=== PATIENT | female | born 1945 | race Caucasian/White ===

== ENCOUNTER 2016-10-23 08:22 | Emergency (ER) | payer OTHER ==
[~2016-10-23] VITALS: Ht 157.5 cm; Wt 79.4 kg
[~2016-10-23 08:22] MED LIST: ALDACTONE25 MG PO; BYSTOLIC 5 MG5 M1 PO; CEFDINIR300 MG PO; CEFTIN PO; CELEXA20 MG PO; CHILDREN'S ASPI81 M1 PO; CIPRO500 MG PO; CIPRODEX OTIC7.5 ML OTIC; COREG12.5 MG PO; DIOVAN 80 MG TA80 M1 PO; DIOVAN320 MG PO; ELIQUIS5 MG PO; ESSENTIAL DAIL1 EACH PO; FOLIC ACID1 MG PO; LASIX 40 MG TAB40 M2 PO; LIPITOR 20 MG T20 M1 PO; NORCO 5-325 TA1 EACH PO; NORTRIPTYLINE H50 M3 PO; NORVASC2.5 MG PO; OYSTER SHELL C500 MG PO; PACERONE 200 M200 M1 PO; POTASSIUM20 PO; PROTONIX40 M4 PO; RITUXAN100 MG/10 IV
[2016-10-23] MEDS ORDERED: CELEBREX 200 M200 M1 PO (08:46)
[2016-10-23] MEDS ORDERED: NORCO 5-325 TA1 EACH PO (08:46)
[2016-10-23] MEDS ORDERED: FOLIC ACID1 MG PO (08:58)
[2016-10-23] MEDS ORDERED: DIOVAN 80 MG TA80 M1 PO (08:58)
[2016-10-23] MEDS ORDERED: TRAMADOL 50 MG50 MG PO (08:59)
[2016-10-23 09:21] VITALS: BP 123/53
== END 2016-10-23 09:37 | disposition home or self-care (01) ==
LOC: ER 08:22
DX: M54.5 Low back pain (principal); K21.9 Gastro-esophageal reflux disease without esophagitis; F41.9 Anxiety disorder, unspecified; F32.9 Major depressive disorder, single episode, unspecified; F10.99 Alcohol use, unspecified with unspecified alcohol-induced disorder; I25.10 Atherosclerotic heart disease of native coronary artery without angina pectoris; E78.00 Pure hypercholesterolemia, unspecified; I11.0 Hypertensive heart disease with heart failure; I50.9 Heart failure, unspecified; M06.9 Rheumatoid arthritis, unspecified; Z90.49 Acquired absence of other specified parts of digestive tract; Z91.040 Latex allergy status

== ENCOUNTER 2016-12-01 00:45 | Emergency (ER) | payer OTHER ==
[~2016-12-01] VITALS: Ht 157.5 cm; Wt 78.0 kg
[~2016-12-01 00:45] MED LIST changes: +CELEBREX 200 M200 M1 PO; +TRAMADOL 50 MG50 MG PO
[2016-12-01] MEDS ORDERED: NEURONTIN300 MG PO (01:01)
[2016-12-01] MEDS ORDERED: OXYCODONE HCL 55 MG PO (01:03)
[2016-12-01 02:57] VITALS: BP 123/49
== END 2016-12-01 02:58 | disposition home or self-care (01) ==
LOC: ER 00:45
DX: S73.102A Unspecified sprain of left hip, initial encounter (principal); S93.601A Unspecified sprain of right foot, initial encounter; S80.12XA Contusion of left lower leg, initial encounter; I11.0 Hypertensive heart disease with heart failure; I50.9 Heart failure, unspecified; K21.9 Gastro-esophageal reflux disease without esophagitis; F32.9 Major depressive disorder, single episode, unspecified; F41.9 Anxiety disorder, unspecified; I25.10 Atherosclerotic heart disease of native coronary artery without angina pectoris; E78.00 Pure hypercholesterolemia, unspecified; G43.909 Migraine, unspecified, not intractable, without status migrainosus; I48.0 Paroxysmal atrial fibrillation; M06.9 Rheumatoid arthritis, unspecified; F10.99 Alcohol use, unspecified with unspecified alcohol-induced disorder; Z90.49 Acquired absence of other specified parts of digestive tract; Z98.890 Other specified postprocedural states; Z91.040 Latex allergy status; W18.39XA Other fall on same level, initial encounter; Y93.89 Activity, other specified; Y92.89 Other specified places as the place of occurrence of the external cause; Y99.8 Other external cause status

== ENCOUNTER 2016-12-03 11:27 | Emergency (ER) | payer OTHER ==
[~2016-12-03] VITALS: Ht 157.5 cm; Wt 78.0 kg
[~2016-12-03 11:27] MED LIST changes: +NEURONTIN300 MG PO; +OXYCODONE HCL 55 MG PO
[2016-12-03 13:15] VITALS: BP 126/49
[2016-12-03] MEDS ORDERED: PERCOCET 7.5-31 EACH PO (14:24)
== END 2016-12-03 17:31 | disposition home or self-care (01) ==
LOC: ER 11:27
DX: S70.02XA Contusion of left hip, initial encounter (principal); K21.9 Gastro-esophageal reflux disease without esophagitis; M06.9 Rheumatoid arthritis, unspecified; G43.909 Migraine, unspecified, not intractable, without status migrainosus; I48.91 Unspecified atrial fibrillation; F41.9 Anxiety disorder, unspecified; F32.9 Major depressive disorder, single episode, unspecified; I25.10 Atherosclerotic heart disease of native coronary artery without angina pectoris; E78.00 Pure hypercholesterolemia, unspecified; I73.00 Raynaud's syndrome without gangrene; I11.0 Hypertensive heart disease with heart failure; I50.9 Heart failure, unspecified; F10.99 Alcohol use, unspecified with unspecified alcohol-induced disorder; Z91.040 Latex allergy status; Z90.49 Acquired absence of other specified parts of digestive tract; W18.30XA Fall on same level, unspecified, initial encounter; Y93.89 Activity, other specified; Y92.89 Other specified places as the place of occurrence of the external cause; Y99.8 Other external cause status

== ENCOUNTER → 2017-04-07 | Outpatient (CLI) | payer OTHER ==
[~2017-04-07] MED LIST changes: +PERCOCET 7.5-31 EACH PO
== END ==
LOC: HYPER 06:40
DX: T81.31XA Disruption of external operation (surgical) wound, not elsewhere classified, initial encounter (principal); L98.422 Non-pressure chronic ulcer of back with fat layer exposed; M54.16 Radiculopathy, lumbar region; M54.5 Low back pain; I11.0 Hypertensive heart disease with heart failure; I50.9 Heart failure, unspecified; M06.9 Rheumatoid arthritis, unspecified; E78.5 Hyperlipidemia, unspecified; Z72.89 Other problems related to lifestyle; Y83.8 Other surgical procedures as the cause of abnormal reaction of the patient, or of later complication, without mention of misadventure at the time of the procedure

== ENCOUNTER → 2017-04-12 | Outpatient (CLI) | payer OTHER ==
[~2017-04-12] MED LIST changes: +ASPIRIN PO; +BUTALBITAL PO; +CAFFEINE PO; +EQUATE ALLERGY RELIE PO; +PERCOCET 5-3251 EACH PO; +PROPRANOLOL 4040 M1 PO; +SULFASALAZINE500 M1 PO; +VITAMINC500 PO
== END ==
LOC: HYPER 04-11 09:27
DX: T81.31XD Disruption of external operation (surgical) wound, not elsewhere classified, subsequent encounter (principal); L98.422 Non-pressure chronic ulcer of back with fat layer exposed; I11.0 Hypertensive heart disease with heart failure; I50.9 Heart failure, unspecified; E78.5 Hyperlipidemia, unspecified; M06.9 Rheumatoid arthritis, unspecified; Z72.89 Other problems related to lifestyle; Y83.8 Other surgical procedures as the cause of abnormal reaction of the patient, or of later complication, without mention of misadventure at the time of the procedure

== ENCOUNTER → 2017-04-27 | Outpatient (CLI) | payer OTHER ==
[~2017-04-27] MED LIST changes: -ASPIRIN PO; -BUTALBITAL PO; -CAFFEINE PO; -EQUATE ALLERGY RELIE PO; -PERCOCET 5-3251 EACH PO; -PROPRANOLOL 4040 M1 PO; -SULFASALAZINE500 M1 PO; -VITAMINC500 PO
== END ==
LOC: HYPER 06:51
DX: T81.31XD Disruption of external operation (surgical) wound, not elsewhere classified, subsequent encounter (principal); I11.0 Hypertensive heart disease with heart failure; I50.9 Heart failure, unspecified; E78.5 Hyperlipidemia, unspecified; M06.9 Rheumatoid arthritis, unspecified; Z72.89 Other problems related to lifestyle; Y83.8 Other surgical procedures as the cause of abnormal reaction of the patient, or of later complication, without mention of misadventure at the time of the procedure

== ENCOUNTER → 2017-05-17 | Outpatient (CLI) | payer OTHER ==
[~2017-05-17] MED LIST changes: +ASPIRIN PO; +BUTALBITAL PO; +CAFFEINE PO; +EQUATE ALLERGY RELIE PO; +PERCOCET 5-3251 EACH PO; +PROPRANOLOL 4040 M1 PO; +SULFASALAZINE500 M1 PO; +VITAMINC500 PO
== END ==
LOC: HYPER 06:38
DX: T81.31XD Disruption of external operation (surgical) wound, not elsewhere classified, subsequent encounter (principal); M54.5 Low back pain; M51.16 Intervertebral disc disorders with radiculopathy, lumbar region; I11.0 Hypertensive heart disease with heart failure; I50.9 Heart failure, unspecified; M06.9 Rheumatoid arthritis, unspecified; E78.5 Hyperlipidemia, unspecified; Z72.89 Other problems related to lifestyle; Y83.8 Other surgical procedures as the cause of abnormal reaction of the patient, or of later complication, without mention of misadventure at the time of the procedure

== ENCOUNTER → 2017-06-07 | Outpatient (CLI) | payer OTHER | LOC: HYPER 06:38 | DX: T81.31XD Disruption of external operation (surgical) wound, not elsewhere classified, subsequent encounter (principal); M51.16 Intervertebral disc disorders with radiculopathy, lumbar region; I11.0 Hypertensive heart disease with heart failure; I50.9 Heart failure, unspecified; M06.9 Rheumatoid arthritis, unspecified; E78.5 Hyperlipidemia, unspecified; Z90.49 Acquired absence of other specified parts of digestive tract; Z72.89 Other problems related to lifestyle; Y83.8 Other surgical procedures as the cause of abnormal reaction of the patient, or of later complication, without mention of misadventure at the time of the procedure ==

== ENCOUNTER → 2017-07-06 | Outpatient (CLI) | payer OTHER | LOC: HYPER 06-22 07:06 | DX: T81.31XD Disruption of external operation (surgical) wound, not elsewhere classified, subsequent encounter (principal); I11.0 Hypertensive heart disease with heart failure; I50.9 Heart failure, unspecified; E78.5 Hyperlipidemia, unspecified; M54.5 Low back pain; M06.9 Rheumatoid arthritis, unspecified; Z72.89 Other problems related to lifestyle; Y83.8 Other surgical procedures as the cause of abnormal reaction of the patient, or of later complication, without mention of misadventure at the time of the procedure ==

== ENCOUNTER → 2017-07-20 | Outpatient (CLI) | payer OTHER | LOC: HYPER 06:46 | DX: T81.31XD Disruption of external operation (surgical) wound, not elsewhere classified, subsequent encounter (principal); I11.0 Hypertensive heart disease with heart failure; I50.9 Heart failure, unspecified; M06.9 Rheumatoid arthritis, unspecified; M51.16 Intervertebral disc disorders with radiculopathy, lumbar region; M54.5 Low back pain; E78.5 Hyperlipidemia, unspecified; Z72.89 Other problems related to lifestyle; Y83.8 Other surgical procedures as the cause of abnormal reaction of the patient, or of later complication, without mention of misadventure at the time of the procedure ==

== ENCOUNTER 2017-10-23 19:28 | Emergency (ER) | payer OTHER ==
[~2017-10-23] VITALS: Ht 162.6 cm; Wt 81.7 kg
[~2017-10-23 19:28] MED LIST changes: -ASPIRIN PO; -BUTALBITAL PO; -CAFFEINE PO; -EQUATE ALLERGY RELIE PO; -PERCOCET 5-3251 EACH PO; -PROPRANOLOL 4040 M1 PO; -SULFASALAZINE500 M1 PO; -VITAMINC500 PO
[2017-10-23] MEDS ORDERED: NORTRIPTYLINE H50 M3 PO (21:43)
[2017-10-23] MEDS ORDERED: SULFASALAZINE500 M1 PO (21:43)
[2017-10-23] MEDS ORDERED: PROPRANOLOL 4040 M1 PO (21:44)
[2017-10-23] MEDS ORDERED: VITAMINC500 PO (21:44)
[2017-10-23] MEDS ORDERED: BUTALBITAL PO (21:46)
[2017-10-23] MEDS ORDERED: ASPIRIN PO (21:46)
[2017-10-23] MEDS ORDERED: CAFFEINE PO (21:46)
[2017-10-23] MEDS ORDERED: EQUATE ALLERGY RELIE PO (21:46)
[2017-10-23] MEDS ORDERED: PERCOCET 5-3251 EACH PO (21:51)
[2017-10-23 22:08] VITALS: BP 127/51
== END 2017-10-23 22:09 | disposition home or self-care (01) ==
LOC: ER 19:28
DX: S42.402A Unspecified fracture of lower end of left humerus, initial encounter for closed fracture (principal); S60.211A Contusion of right wrist, initial encounter; S09.90XA Unspecified injury of head, initial encounter; S80.211A Abrasion, right knee, initial encounter; K21.9 Gastro-esophageal reflux disease without esophagitis; I11.0 Hypertensive heart disease with heart failure; I50.9 Heart failure, unspecified; F32.9 Major depressive disorder, single episode, unspecified; G43.909 Migraine, unspecified, not intractable, without status migrainosus; E78.00 Pure hypercholesterolemia, unspecified; I25.10 Atherosclerotic heart disease of native coronary artery without angina pectoris; Z90.49 Acquired absence of other specified parts of digestive tract; Z91.040 Latex allergy status; W01.0XXA Fall on same level from slipping, tripping and stumbling without subsequent striking against object, initial encounter; Y93.89 Activity, other specified; Y92.89 Other specified places as the place of occurrence of the external cause; Y99.8 Other external cause status

== ENCOUNTER → 2018-08-08 | Outpatient (CLI) | payer OTHER ==
[~2018-08-08] MED LIST changes: +ASPIRIN PO; +BUTALBITAL PO; +CAFFEINE PO; +EQUATE ALLERGY RELIE PO; +PERCOCET 5-3251 EACH PO; +PROPRANOLOL 4040 M1 PO; +SULFASALAZINE500 M1 PO; +VITAMINC500 PO
== END ==
LOC: HYPER 07:43
DX: T81.31XD Disruption of external operation (surgical) wound, not elsewhere classified, subsequent encounter (principal); I11.0 Hypertensive heart disease with heart failure; I50.9 Heart failure, unspecified; M06.9 Rheumatoid arthritis, unspecified; M54.5 Low back pain; M51.16 Intervertebral disc disorders with radiculopathy, lumbar region; E78.5 Hyperlipidemia, unspecified; Y83.8 Other surgical procedures as the cause of abnormal reaction of the patient, or of later complication, without mention of misadventure at the time of the procedure

== ENCOUNTER → 2018-08-22 | Outpatient (CLI) | payer OTHER | LOC: HYPER 06:58 | DX: T81.31XD Disruption of external operation (surgical) wound, not elsewhere classified, subsequent encounter (principal); I11.0 Hypertensive heart disease with heart failure; I50.9 Heart failure, unspecified; E78.5 Hyperlipidemia, unspecified; M54.5 Low back pain; M51.16 Intervertebral disc disorders with radiculopathy, lumbar region; M06.9 Rheumatoid arthritis, unspecified; Y83.8 Other surgical procedures as the cause of abnormal reaction of the patient, or of later complication, without mention of misadventure at the time of the procedure ==

== ENCOUNTER → 2018-09-19 | Outpatient (CLI) | payer OTHER | LOC: HYPER 06:56 | DX: T81.31XD Disruption of external operation (surgical) wound, not elsewhere classified, subsequent encounter (principal); M54.5 Low back pain; M51.16 Intervertebral disc disorders with radiculopathy, lumbar region; I11.0 Hypertensive heart disease with heart failure; I50.9 Heart failure, unspecified; E78.5 Hyperlipidemia, unspecified; M06.9 Rheumatoid arthritis, unspecified; Y83.8 Other surgical procedures as the cause of abnormal reaction of the patient, or of later complication, without mention of misadventure at the time of the procedure ==

== ENCOUNTER → 2018-11-14 | Outpatient (CLI) | payer OTHER | LOC: HYPER 06:44 | DX: T81.31XD Disruption of external operation (surgical) wound, not elsewhere classified, subsequent encounter (principal); I11.0 Hypertensive heart disease with heart failure; I50.9 Heart failure, unspecified; E78.5 Hyperlipidemia, unspecified; M54.5 Low back pain; M51.16 Intervertebral disc disorders with radiculopathy, lumbar region; M06.9 Rheumatoid arthritis, unspecified; Y83.8 Other surgical procedures as the cause of abnormal reaction of the patient, or of later complication, without mention of misadventure at the time of the procedure ==

== ENCOUNTER → 2018-11-22 | Outpatient (CLI) | payer OTHER | LOC: HYPER 06:12 | DX: T81.49XD Infection following a procedure, other surgical site, subsequent encounter (principal); L98.422 Non-pressure chronic ulcer of back with fat layer exposed; I11.0 Hypertensive heart disease with heart failure; I50.9 Heart failure, unspecified; E78.5 Hyperlipidemia, unspecified; M54.5 Low back pain; M51.16 Intervertebral disc disorders with radiculopathy, lumbar region; M06.9 Rheumatoid arthritis, unspecified; Y83.8 Other surgical procedures as the cause of abnormal reaction of the patient, or of later complication, without mention of misadventure at the time of the procedure ==

== ENCOUNTER → 2018-11-29 | Outpatient (CLI) | payer OTHER | LOC: HYPER 06:26 | DX: T81.49XD Infection following a procedure, other surgical site, subsequent encounter (principal); L98.422 Non-pressure chronic ulcer of back with fat layer exposed; I11.0 Hypertensive heart disease with heart failure; I50.9 Heart failure, unspecified; E78.5 Hyperlipidemia, unspecified; M54.5 Low back pain; M51.16 Intervertebral disc disorders with radiculopathy, lumbar region; Y83.8 Other surgical procedures as the cause of abnormal reaction of the patient, or of later complication, without mention of misadventure at the time of the procedure ==

== ENCOUNTER → 2018-12-12 | Outpatient (CLI) | payer OTHER | LOC: HYPER 06:38 | DX: T81.49XD Infection following a procedure, other surgical site, subsequent encounter (principal); L98.422 Non-pressure chronic ulcer of back with fat layer exposed; I11.0 Hypertensive heart disease with heart failure; I50.9 Heart failure, unspecified; E78.5 Hyperlipidemia, unspecified; M06.9 Rheumatoid arthritis, unspecified; M54.5 Low back pain; M51.16 Intervertebral disc disorders with radiculopathy, lumbar region; Y83.8 Other surgical procedures as the cause of abnormal reaction of the patient, or of later complication, without mention of misadventure at the time of the procedure ==

== ENCOUNTER → 2018-12-27 | Outpatient (CLI) | payer OTHER | LOC: HYPER 06:36 | DX: T81.49XD Infection following a procedure, other surgical site, subsequent encounter (principal); L98.422 Non-pressure chronic ulcer of back with fat layer exposed; I11.0 Hypertensive heart disease with heart failure; I50.9 Heart failure, unspecified; E78.5 Hyperlipidemia, unspecified; K21.9 Gastro-esophageal reflux disease without esophagitis; M06.9 Rheumatoid arthritis, unspecified; M54.5 Low back pain; M51.16 Intervertebral disc disorders with radiculopathy, lumbar region; Y83.8 Other surgical procedures as the cause of abnormal reaction of the patient, or of later complication, without mention of misadventure at the time of the procedure ==

== ENCOUNTER → 2019-01-11 | Outpatient (CLI) | payer OTHER | LOC: HYPER 07:04 | DX: T81.49XD Infection following a procedure, other surgical site, subsequent encounter (principal); L98.422 Non-pressure chronic ulcer of back with fat layer exposed; I11.0 Hypertensive heart disease with heart failure; I50.9 Heart failure, unspecified; E78.5 Hyperlipidemia, unspecified; M06.9 Rheumatoid arthritis, unspecified; M54.5 Low back pain; M51.16 Intervertebral disc disorders with radiculopathy, lumbar region; Y83.8 Other surgical procedures as the cause of abnormal reaction of the patient, or of later complication, without mention of misadventure at the time of the procedure ==

== ENCOUNTER → 2019-01-25 | Outpatient (CLI) | payer OTHER | LOC: HYPER 06:57 | DX: T81.49XD Infection following a procedure, other surgical site, subsequent encounter (principal); L98.422 Non-pressure chronic ulcer of back with fat layer exposed; I11.0 Hypertensive heart disease with heart failure; I50.9 Heart failure, unspecified; E78.5 Hyperlipidemia, unspecified; M54.5 Low back pain; M51.16 Intervertebral disc disorders with radiculopathy, lumbar region; M06.9 Rheumatoid arthritis, unspecified; Y83.8 Other surgical procedures as the cause of abnormal reaction of the patient, or of later complication, without mention of misadventure at the time of the procedure ==

== ENCOUNTER → 2019-02-13 | Outpatient (CLI) | payer OTHER | LOC: HYPER 15:52 | DX: T81.49XD Infection following a procedure, other surgical site, subsequent encounter (principal); L98.422 Non-pressure chronic ulcer of back with fat layer exposed; I11.0 Hypertensive heart disease with heart failure; I50.9 Heart failure, unspecified; E78.5 Hyperlipidemia, unspecified; M54.5 Low back pain; M51.16 Intervertebral disc disorders with radiculopathy, lumbar region; Y83.8 Other surgical procedures as the cause of abnormal reaction of the patient, or of later complication, without mention of misadventure at the time of the procedure ==

== ENCOUNTER → 2019-12-12 | Outpatient (CLI) | payer OTHER | LOC: SJCVC 10:55 | PROVIDERS: ATTEND Internal Medicine Cardiovascular Disease | DX: I44.0 Atrioventricular block, first degree (principal); I44.7 Left bundle-branch block, unspecified; R00.1 Bradycardia, unspecified; R94.31 Abnormal electrocardiogram [ECG] [EKG]; I42.8 Other cardiomyopathies; I10 Essential (primary) hypertension; E78.00 Pure hypercholesterolemia, unspecified; E03.9 Hypothyroidism, unspecified; M19.90 Unspecified osteoarthritis, unspecified site; R13.10 Dysphagia, unspecified; M06.9 Rheumatoid arthritis, unspecified; Z79.899 Other long term (current) drug therapy; Z82.49 Family history of ischemic heart disease and other diseases of the circulatory system; Z79.01 Long term (current) use of anticoagulants ==

== ENCOUNTER → 2019-12-17 | Outpatient (CLI) | payer OTHER | LOC: RAD 09:51 | DX: M47.816 Spondylosis without myelopathy or radiculopathy, lumbar region (principal); M43.26 Fusion of spine, lumbar region; M43.16 Spondylolisthesis, lumbar region; R29.890 Loss of height ==

== ENCOUNTER → 2020-01-02 | Outpatient (CLI) | payer OTHER | LOC: SJCVCIMAG 12-26 08:37 | PROVIDERS: ATTEND Internal Medicine Cardiovascular Disease | DX: I08.1 Rheumatic disorders of both mitral and tricuspid valves (principal); R00.1 Bradycardia, unspecified; I44.7 Left bundle-branch block, unspecified; I25.5 Ischemic cardiomyopathy; I48.0 Paroxysmal atrial fibrillation; I42.9 Cardiomyopathy, unspecified; Z79.899 Other long term (current) drug therapy ==

== ENCOUNTER → 2021-01-06 | Outpatient (CLI) | payer OTHER | LOC: SJCVCINTER 16:04 → SJCVC 16:04 | PROVIDERS: ATTEND Internal Medicine Cardiovascular Disease | DX: R94.31 Abnormal electrocardiogram [ECG] [EKG] (principal); I48.0 Paroxysmal atrial fibrillation; I44.7 Left bundle-branch block, unspecified; I10 Essential (primary) hypertension; E78.00 Pure hypercholesterolemia, unspecified; Z79.01 Long term (current) use of anticoagulants; I42.8 Other cardiomyopathies; K44.9 Diaphragmatic hernia without obstruction or gangrene; M06.9 Rheumatoid arthritis, unspecified; Z88.8 Allergy status to other drugs, medicaments and biological substances; Z90.49 Acquired absence of other specified parts of digestive tract; Z98.890 Other specified postprocedural states; Z79.899 Other long term (current) drug therapy ==

== ENCOUNTER → 2021-01-06 | Outpatient (CLI) | payer OTHER | LOC: CAT 16:01 | PROVIDERS: ATTEND Internal Medicine Cardiovascular Disease | DX: Z13.6 Encounter for screening for cardiovascular disorders (principal); I25.10 Atherosclerotic heart disease of native coronary artery without angina pectoris; E78.00 Pure hypercholesterolemia, unspecified ==